=== PATIENT | female | born 1945 | race Caucasian/White ===

== ENCOUNTER 2018-01-12 15:00 | Outpatient (CLI) | payer MEDICARE, BC | END 2018-01-12 15:01 | disposition home or self-care (01) | LOC: BICRAD 15:00 | PROVIDERS: ATTEND Internal Medicine | DX: M79.89 Other specified soft tissue disorders (principal) ==

== ENCOUNTER 2018-04-20 13:53 | Outpatient (CLI) | payer MEDICARE, BC | END 2018-04-20 13:54 | disposition home or self-care (01) | LOC: BICRAD 13:53 | PROVIDERS: ATTEND Internal Medicine | DX: R05 Cough (principal); R91.8 Other nonspecific abnormal finding of lung field | CPT/HCPCS: 71046 ==